=== PATIENT | female | born 1965 | race Caucasian/White ===

== ENCOUNTER → 2020-07-09 17:28 | Outpatient (CLI) | payer OTHER, SELFPAY ==
--- NOTE | ~2020-07-09 | MM_ITS ---
EXAMINATION: MM screening [facility] BI w sumit HISTORY: Screening mammogram TECHNIQUE: Craniocaudal and mediolateral oblique 3-D tomosynthesis images were obtained and synthetic 2-D images were generated. CAD analysis was submitted and interpreted. COMPARISON: 10/30/2018, 11/29/2016 BREAST PARENCHYMAL COMPOSITION: There are scattered areas of fibroglandular density. FINDINGS: There is no evidence of suspicious mass, calcification, or architectural distortion to sugg est malignancy in either breast. There has been no suspicious interval change. IMPRESSION: 1. No mammographic evidence of malignancy. 2. Recommend routine screening mammography in one year. BI-RADS Category 1: Negative Reviewed, dictated and finalized at location A.
== END ==
DX: Z12.31 Encounter for screening mammogram for malignant neoplasm of breast (principal)
CPT/HCPCS: 77063; 77067

== ENCOUNTER → 2022-04-28 07:32 | Outpatient (CLI) | payer MEDICARE, SELFPAY ==
--- NOTE | ~2022-04-28 | MM_ITS ---
EXAMINATION: MM screening [facility] BI w sumit HISTORY: Screening mammogram TECHNIQUE: Craniocaudal and mediolateral oblique 3-D tomosynthesis images were obtained and synthetic 2-D images were generated. CAD analysis was submitted and interpreted. COMPARISON: 07/09/2020, 10/30/2018, 11/29/2016 bilateral screening mammogram examinations BREAST PARENCHYMAL COMPOSITION: There are scattered areas of fibroglandular density. FINDINGS: Benign-appearing circumscribed low-density bilateral intramammary lymph nodes. There is no evidence of suspicious mass, calcification, or architectural distortion to suggest malignancy in eith er breast. There has been no suspicious interval change. IMPRESSION: 1. No mammographic evidence of malignancy. 2. Recommend routine screening mammography in one year. BI-RADS Category 2: Benign finding(s). Reviewed, dictated and finalized at location A. 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
--- NOTE | ~2022-04-28 | MR_ITS ---
EXAMINATION: MR abdomen wo/w con DATE: 04/28/2022 09:26 INDICATION: Family history of pancreatic cancer. TECHNIQUE: Magnetic resonance imaging (MRI) of the abdomen was performed without and with 14 mL Multi Osmar intravenous contrast. COMPARISON: None. FINDINGS: There is a 4 mm cyst in the liver. The spleen, gallbladder, adrenal glands, and kidneys are normal. I ncomplete pancreas divisum is noted. There is diverticulosis of the colon without evidence of diverti culitis. There are no dilated loops of bowel. There are no pathologically enlarged lymph nodes. There is no free intraperitoneal fluid. There are changes of anterior fusion procedure at lumbosacral junc tion. IMPRESSION: 1. No evidence of malignancy. Reviewed, dictated and finalized at location A. 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
== END ==
DX: Z12.31 Encounter for screening mammogram for malignant neoplasm of breast (principal); Z85.07 Personal history of malignant neoplasm of pancreas; Z87.891 Personal history of nicotine dependence
CPT/HCPCS: 74183; 77063; 77067; A9577

== ENCOUNTER 2024-02-25 07:23 | Outpatient (CLI) | payer MEDICARE, SELFPAY ==
--- NOTE | ~2024-02-25 | MM_ITS ---
EXAMINATION: MM screening [facility] BI w sumit HISTORY: Screening TECHNIQUE: Craniocaudal and mediolateral oblique 3-D tomosynthesis images were obtained and synthetic 2-D images were generated. CAD analysis was submitted and interpreted. COMPARISON: Comparison to multiple prior studies sequentially, with oldest reviewed study dated 11/2016. BREAST PARENCHYMAL COMPOSITION: Not dense: There are scattered areas of fibroglandular density. FINDINGS: There is no evidence of suspicious mass, calcification, or architectural distortion to sugg est malignancy in either breast. There has been no suspicious interval change. IMPRESSION: 1. No mammographic evidence of malignancy. 2. Recommend routine screening mammography in one year. BI-RADS Category 1: Negative Reviewed, dictated and finalized at location B. 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
== END 2024-02-25 07:24 | disposition home or self-care (01) ==
DX: Z12.31 Encounter for screening mammogram for malignant neoplasm of breast (principal)
CPT/HCPCS: 77063; 77067

== ENCOUNTER 2024-08-24 00:11 | Day surgery (SDC) | payer MEDICARE, SELFPAY ==
[2024-08-16 12:17] VITALS: BMI 24.0
--- NOTE | 2024-08-16 12:43 | PC.NURSE ---
Spoke with _patient regarding medication plavix and cilostazol. Patient verbalizes understanding that the last dose is to be taken on 08/16/24 and the Endoscopist will instruct them when to restart after the procedure.
--- OUTSIDE RECORDS SUMMARY | 2024-08-24 00:13 | XMS_ITS | Clinical Summary ---
Author Organization [facility] Address [address] [place] [address] Care Team Providers Care Dry Ice Maker Name Role Phone Dianne MCKENZIE MD, Kee Primary Care Provider [phone] Allergies Active Allergy Reactions Criticality Noted Date Comments Clarithromycin Unknown 05/30/2015 GI Sulfa (Sulfonamide Antibiotics) Rash Low 01/22 Sulfacetamide Sodium Unknown 05/30/2015 Medications rosuvastatin (CRESTOR) 40 mg tablet Take 40 mg by mouth daily at bedtime. Active ezetimibe (ZETIA) 10 mg tablet Take 10 mg by mouth daily. Active verapamil (CALAN) 120 mg tablet Take 120 mg by mouth 3 times daily. Active clopidogrel (PLAVIX) 75 mg Tablet Take 75 mg by mouth. Active cilostazol (PLETAL) 50 mg Tablet Take 50 mg by mouth 2 times daily before meals. Active omeprazole (PRILOSEC) 20 mg Capsule, Delayed Release(E.C.) Take 20 mg by mouth daily. Active Active Problems Problem Noted Date Diagnosed Date Atheroembolism of left lower extremity 5 Family History Medical History Relation Name Comments Hemophilia Father Cancer Maternal Grandmother Cancer Mother Stroke Paternal Aunt Hemophilia Paternal Grandfather Hemophilia Paternal Uncle Relation Name Status Comments Father Maternal Grandmother Mother Paternal Aunt Paternal Grandfather Paternal Uncle Social History Tobacco Use Types Packs/Day Years Used Date Smoking Tobacco: Never Smokeless Tobacco: Never Alcohol Use Standard Drinks/Week Comments Yes 2 (1 standard drink = 0.6 oz pur e alcohol) Comments No Sex and Gender Information Value Date Recorded Sex Assigned at Not on file Legal Sex Female 2:27 PM CDT Gender Identity Not on file Sexual Orientation Not on file Last Filed Vital Signs Vital Sign Reading Time Taken Comments Blood Pressure 140/90 05/30/2015 9:35 AM SAP ARCHITECT Pulse 85 05/30/2015 9:35 AM SAP ARCHITECT Temperature - - Respiratory Rate - - Oxygen Saturation - - Inhaled Oxygen Concentration - - Weight 76.2 kg (168 lb) 05/30/2015 9:33 AM SAP ARCHITECT Height 171.5 cm (5' 7.5) 05/30/2015 9:33 AM SAP ARCHITECT Body Mass Index 25.92 05/30/2015 9:33 AM SAP ARCHITECT Plan of Treatment Health Maintenance Due Date Last Done Comments DTAP/TDAP/TD VACCINES (1 - Tdap) 07/23/1982 HPV/Cotest (21-29) 07/23/1984 CERVICAL CANCER SCREENING 07/23/1993 HPV/Cotest (30-65) 07/23/1993 PAP SMEAR 07/23/1993 BREAST CANCER SCREENING 2003 COLORECTAL SCREENING 07/23/2008 Colorectal Cancer Screening 07/23/2008 FIT-DNA Q 3 years 07/23/2008 FIT/FOBT Q 1 year 07/23/2008 Flex Sig/CT Colonography Q 5 years 07/23/2008 ZOSTER VACCINE (1 of 2) 07/23/2013 RSV VACCINE (60+ or ) (1 - Risk 60-74 years 1-dose series) 2023 INFLUENZA VACCINE (#1) 2023 Insurance Care Teams Dry Ice Maker Relationship Specialty Start Date End Date Kee Dean III, MD PCP - General Internal Medicine 02/13/15
--- OUTSIDE RECORDS SUMMARY | 2024-08-24 00:13 | XMS_ITS | Encounter Summary ---
Author Organization [facility] Address [address] [address] Care Team Providers Care Ab Initio Etl Developer Name Role Phone Dianne MCKENZIE MD, Edwin Primary Care Provider Avani vailable Sanket Carrasquillo MD Unavailable Kamari Oconnell MD Unavailable Winston Lopez MD Unavailable Lamont Simmons MD Unavailable Octavio Clay MD Unavailable Yariel High MD Unavailable [phone] Yu Salmeron MD Unavailable Unavailiman e Fernando Dean MD Unavailable [phone] Joana Orlando MD Unavailable Nancy Ortega DO Primary Care Provider [phone] Nancy Ortega DO Unavailable Nancy Ortega DO Unavailable Fannie Moreno Unavailable [phone] Fannie Moreno Unavailable [phone] Encounter Details Date Type Department Care Team (Late st Contact Info) Description 12/08/2016 [facility] Outpatient Visit [facility] [address] [place] [address] Document, Scanned Social History Tobacco Use Types Packs/Day Years Used Date Smoking Tobacco: Former Cigarettes Q uit: 03/02/2004 Smokeless Tobacco: Never Alcohol Use Standard Drinks/Week Comments No 0 (1 standard drink = 0.6 oz pur e alcohol) Comments No Sex and Gender Information Value Date Recorded Sex Assigned at Not on file Legal Sex Female 6:49 AM 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 Gender Identity Female 04/21/2017 8:26 AM 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 Sexual Orientation Not on file documented as of this encounter Plan of Treatment Upcoming Encounters Date Type Department Care Team (Late st Contact Info) Description 01/11/2025 8:20 AM CDT Office Visit [facility] Internal Medicine [address] [place] [phone] Mary Jo Tovar, FAST FOOD WORKER-CITY LIBRARY DIRECTOR [address] [place] [address] 07/12/2025 8:00 AM CDT Office Visit [facility] Internal Medicine [address] [place] [address] Nancy Ortega DO [address] [place] [phone] documented as of this encounter Visit Diagnoses Not on filedocumented in this encounter Care Teams Ab Initio Etl Developer Relationship Specialty Start Date End Date Kee Dean III, MD PCP - General 04/18/09 06/11/20 Sanket Carrasquillo MD [address] [place] [address] [id number] PCP - OBGYN 04/18/09 02/07/20 Nancy Orteag DO [address] [place] [phone] PCP - General Internal Medicine 06/12/20 Nancy Ortega DO [address] [place] [address] [place] [phone] PCP - Attributed-[employer] MA ST 10/21/20 03/09/22 Nancy Ortega DO [address] [place] [address] PCP - Attributed-[employer] MA ST 03/23/22 Kamari Oconnell MD [address] [facility] [address] [place] [address] 11/02/09 02/07/20 Winston Lopez MD [address] [phone] 11/02/09 02/07/20 Lamont Simmons MD [facility] [address] [place] [address] 11/02/09 12/14/22 Octavio Clay MD Neurological Surgery [facility] [address] [facility] [address] [place] [address] 11/02/09 02/07/20 Yariel High MD [address] [place] [address] 11/02/09 Yu Salmeron MD 11/02/09 12/14/22 Fernando Dean MD [address] [place] [address] [address] [place] [address] Internal Medicine 02/03/14 02/07/20 Joana Orlando MD [address] [place] [place] [address] Obstetrics and Gynecology 02/08/20 12/14/22 Fannie Moreno Care Coordination Specialist Care Management 08/18/23 08/18/23 Fannie Moreno Care Coordination Specialist Care Management 06/01/24 07/18/24 documented as of this encounter
--- OUTSIDE RECORDS SUMMARY | 2024-08-24 00:13 | XMS_ITS | Clinical Summary ---
Author Organization [facility] Address [address] [place] [address] Care Team Providers Care Auction Clerk Name Role Phone Yariel High MD Unavailable [phone] Nancy Ortega DO Primary Care Provider [phone] Nancy Ortega DO Unavailable [phone] Source Comments [facility],non-owned Affiliates and Associated Physician Practices is amultiple site organization consisting of ambulatory clinics and hospital sitesin [place], [place], [place] and [place]. This disclosure is being madepursuant to the Care Everywhere program and may not contain all information available regarding this patient. Last updated 17.[facility] Allergies Active Allergy Reactions Criticality Noted Date Comments Clarithromycin Other Low 06/18/2008 GI Sulfa Drugs 02/16/2008 Medications * Be aware that medications may not be up to date on this document. Alwaysverify current medications with the patient. loratadine (Claritin) 10 MG tablet Take 1 (one) tablet by mouth once daily Active rosuvastatin (Crestor) 40 MG tablet Take 1 (one) tablet by mouth once daily 90 tablet 3 12/30/19 24 Active cilostazol (Pletal) 50 MG tablet TAKE 1 TABLET TWICE DAILY 180 tablet 3 01/08/20 24 Active clopidogrel (plaVIX) 75 MG tablet TAKE 1 TABLET EVERY DAY 90 tablet 3 02/01/20 24 Active omeprazole (PriLOSEC) 40 MG capsule TAKE 1 CAPSULE EVERY DAY BEFORE BREAKFAST 90 capsule 3 07/16/19 25 Active verapamil CR (Isoptin-SR) 180 MG tablet TAKE 1 TABLET AT BEDTIME 90 tablet 3 08/03/19 25 Active ezetimibe (Zetia) 10 MG tablet TAKE 1 TABLET EVERY DAY 90 tablet 3 08/10/19 25 Active verapamil CR (Isoptin-SR) 180 MG tablet Take 1 (one) tablet by mouth at bedtime 90 tablet 3 12/30/19 24 025 Discontinued ezetimibe (Zetia) 10 MG tablet Take 1 (one) tablet by mouth once daily 90 tablet 3 12/30/19 24 025 Discontinued Active Problems Problem Noted Date Diagnosed Date Seasonal allergies 12/15/2022 Primary hypertension 01/21/2022 Pre-diabetes 07/01/2021 Family history of premature coronary artery dise ase 07/01/2021 Overview (01/21/2022): -CT coronary angio 07/2021 done for screening and showed insignificant atherosclerosis. Former smoker 06/25/2021 Overview (06/25/2021): Quit 20 years ago Cold feet 08/01/2020 Overview (08/01/2020): New cold feet. Ordered CLEMENT's. 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 -CT coronary angio 07/2021 done for screening and showed insignificant atherosclerosis. -repeat CLEMENT's in 07/2020 normal. -continue cilostazole, rosuvastatin, plavix, CCB Palpitations 01/29/2011 Migraine without aura and wi thout status migrainosus, not intractable 02/16/2008 Resolved Problems Problem Noted Date Diagnosed Date Resolved Date Healthcare maintenance 08/01/202012/29 Routine general medical exam ination at a health care facility 10/08/2016 11/18/2016 RAD (reactive airway disease) 02/25/2012 12/30/2023 Perimenopausal symptoms 01/29/201111/2023 Screen for Colon Cancer 10/28/2000 ([place]) tics 06/19/19 09 06/12/2020 Stress thallium 12/01/2007 normal 06/18/2008 12/30/2023 Encounters Date Type Department Care Team Description 08/11/2024 Telephone [facility] Internal Medicine [address] [place] [phone] Nancy Ortega, DO General (Pre-procedure forms) 08/08/2024 Refill [facility] Internal Medicine [address] [place] [id number] Nancy Ortega, DO Refill Request 08/01/2024 Refill [facility] Internal Medicine [address] [place] [phone] Nancy Ortega, DO Refill Request 07/27/2024 Telephone [facility] Internal Medicine [address] [place] [phone] Nancy Ortega, DO Letter 07/14/2024 Refill [facility] Internal Medicine [address] [place] [id number] Nancy Ortega, DO Refill Request 07/13/2024 8:40 AM CDT Office Visit [facility] Internal Medicine [address] [place] [phone] Nancy Ortega, DO Pre-diabetes (Primary Dx); Primary hypertension; Overweight (BMI 25.0-29.9); Neck pain; Need for vaccination 07/13/2024 Travel 06/01/2024 Patient Outreach [facility] - Care Coordination [address] [phone] Fannie Moreno Outreach Preventive Care 06/01/2024 Patient Outreach [facility] - Care Coordination [address] [phone] Fannie Moreno Outreach Preventive Care from Last 3 Months Immunizations Immunization Administration Dates Next Due COVID PFIZER BIVALENT 12Y+ 30mcg/0.3ML Covid Pfizer primary monoval ent 12+ yr 0.3mL Purple cap 02/06/2021,05/23/2020,05/02/2020 HEP B VACCINE ADOL/ADULT 2 DOSE 05/15/2000,04/14 HEP B VACCINE, ADULT 3 DOSE 12/30/2023 INFLUENZA VACCINE 12/28/2006,02/07/2005 INFLUENZA VACCINE, CELL CULT URE, QUADR. (FLUCELVAX QUADRIVALENT; 6MO+) (CCIIV4) 01/21/2022 INFLUENZA VACCINE, QUADR. (F LUZONE; FLULAVAL; FLUARIX; AFLURIA QUADRIVALENT; 6MO+), 0.5 ML (IIV4) 12/15/2022 INFLUENZA VACCINE, TRIV. (FL UZONE; FLULAVAL; FLUARIX; AFLURIA TRIVALENT; 6MO+), 0.5 ML (IIV3) 12/30/2023 PNEUMOCOCCAL PCV20 CONJ VAC IM 07/13/2024 PPD 09/01/2000 TDAP (7yrs+) 06/12/2020 Zoster Hzv Vacc Recombinant Inj Im 09/08/2023, iNFLUENZA VACCINE, RECOM-MENENDEZ, QUADR. (FLUBLOCK QUADRIVALENT; 18Y+) (RIV4) 02/08/2020,12/07/2018,01/19/2018 Family History Medical History Relation Name Comments None Known Brother 1 None Known Brother 2 CAD (Coronary Artery Disease) Father Lymphoma Maternal Grandmother Cancer - Pancreatic Mother Other Sister osteopenia Relation Name Status Comments Brother 1 Alive Brother 2 Alive Father (Age 54) arterial d isease Maternal Grandfather Maternal Grandmother Mother (Age 73) Paternal Grandfather Paternal Grandmother Sister Alive Social History Tobacco Use Types Packs/Day Years Used Date Smoking Tobacco: Former Cigarettes 0.2 13 1 05/03/1990 - 03/02/2004 Passive Smoke Exposure: Past Smokeless Tobacco: Never Tobacco Cessation:Counseling Given: Not Answered Alcohol Use Standard Drinks/Week Comments No 0 (1 standard drink = 0.6 oz pur e alcohol) Overall Financial Resource Strain (CARDIA) Answe r Date Recorded How hard is it for you to pa y for the very basics like food, housing, medical care, and heating? Not hard at all 02/08/2020 PHQ-2 Answer Date Recorded Patient Health Questionnaire-2 Score 0 12/23/2023 Hunger Vital Sign Answer Date Recorded Within the past 12 months, y ou worried that your food would run out before you got the money to buy more. Never true 02/08/20 20 Within the past 12 months, t he food you bought just didn't last and you didn't have money to get more. Never true 02/08/2020 PRAPARE - Transportation Answer Date Re corded In the past 12 months, has l ack of transportation kept you from medical appointments or from getting medications? No 01/21 In the past 12 months, has l ack of transportation kept you from meetings, work, or from getting things needed for daily living? No 02/08/2020 Education Answer Date Recorded What is the highest level of school you have completed or the highest degree you have received? Some college, no degree 02/08/2020 Comments No Sex and Gender Information Value Date Recorded Sex Assigned at Not on file Legal Sex Female 6:49 AM BLOWING ENGINEER Gender Identity Female 04/21/2017 8:26 AM BLOWING ENGINEER Sexual Orientation Not on file Occupation Industry Job Start Date Job End Date Not on file Not on file Not on file Not on file Last Filed Vital Signs Vital Sign Reading Time Taken Comments Blood Pressure 122/84 07/13/2024 8:41 AM CDT Pulse 83 07/13/2024 8:41 AM CDT Temperature 36.3 C (97.4 F) 07/13/2024 8:41 AM CDT Respiratory Rate 16 07/30/2021 9:30 AM CDT Oxygen Saturation 98% 07/13/2024 8:41 AM CDT Inhaled Oxygen Concentration - - Weight 72.1 kg (159 lb) 07/13/2024 8:41 AM CDT Height 168.9 cm (5' 6.5) 07/13/2024 8:41 AM CDT Body Mass Index 25.28 07/13/2024 8:41 AM CDT Plan of Treatment Upcoming Encounters Date Type Department Care Team (Late st Contact Info) Description 01/11/2025 8:20 AM CDT Office Visit [facility] - Internal Medicine [address] [place] [address] Mary Jo Tovar, ACCOUNTING SYSTEMS ANALYST-CAR MOVER [address] [place] [address] 07/12/2025 8:00 AM CDT Office Visit [facility] Internal Medicine [address] [address] Nancy Ortega DO [address] [place] [address] Health Maintenance Due Date Last Done Comments COLOGUARD (AGES 45-75) - COLON CA SCREENING 1965 CT COLONOGRAPHY - COLON CA SCREENING 1965 FIT - COLON CA SCREENING 1965 FLEX SIG - COLON CA SCREENING 1965 Respiratory Syncytial Virus (RSV) Vaccine Pt: or over 60 yrs (1 - Risk 60-74 years 1-dose series) 2023 COVID-19 VACCINE ( season) 2023 01/21/2022, 02/06/2021, 05/23/2020, Additional history exists COLON MONITORING 02/04/2024 02/03/2014 COLONOSCOPY - COLON CA SCREENING 02/04/2024 02/03/2014 Colorectal Cancer Screening 02/04/2024 DEPRESSION SCREENING 03/23/2024 12/30/2023, 12/15/2022, 01/21/2022 MEDICARE AWV CALENDAR YEAR 2024 12/30/2023, 06/25/2021, 06/12/2020 MAMMOGRAM 02/23/2025 02/24/2024, 08/2022, 07/09/2020, Additional history exists PAP with HPV 01/21/2027 01/21/2022, 08/2018, 11/18/2016 SCREENING FOR DIABETES 07/14/2027 , 12/30/2023, 12/30/2023, Additional history exists DTAP/TDAP/TD VACCINES (2 - Td or Tdap) 06/12/2030 06/12/2020 HEPATITIS C SCREENING Completed 06/25/2021 HIV SCREENING Completed 06/25/2021 ZOSTER VACCINE Completed 09/08/2023, 06/25/2021 HEPATITIS B VACCINE Discontinued 12/30/2023, 05/15/2000, 04/14/2000 INFLUENZA VACCINE Completed 12/30/2023, , 01/21/2022, Additional history exists PNEUMOCOCCAL VACCINE 50+ Completed 07/13/2024 HIB VACCINE Aged Out No longer eligi ble based on patient's age to complete this topic HPV VACCINE Aged Out No longer eligi ble based on patient's age to complete this topic MENINGOCOCCAL (Group B) VACCINE SHARED DECISION-MAKING Aged Out No longer eligible based on patient's age to complete this topic MENINGOCOCCAL GROUPS A/C/Y/W VACCINE Aged Out No longer eligible based on patient's age to complete this topic Procedures Procedure Name Priority Date/Time Associated Diagnosis Comments HEMOGLOBIN A1C - POINT OF CARE (AMB) Routine 07/13/2024 9:04 AM CDT Pre-diabetes MAMMOGRAM 02/24/2024 PAP IG LB +HPV APTIMA REFLEX 16,18/45 FOR HR POS Routine 01/21/2022 9:00 AM CDT Encounter for cervical Pap smear with pelvic exam Well woman exam with routine gynecological exam HEPATITIS C ANTIBODY W RFLX PCR Routine 06/25/2021 10:04 AM CDT Need for hepatitis C screening test HIV-1 HIV-2 ANTIBODY + HIV P24 AG PANEL Routine 06/25/2021 10:04 AM CDT Screening for HIV (human immunodeficiency virus) ENDOSCOPY, COLON, SCREENING Routine 02/03/2014 from Last 3 Months or Most Recently Relevant to Health Maintenance Results * HEMOGLOBIN A1C - POINT OF CARE (HgbA1C) (07/13/2024 9:04 AM CDT) Hemoglobin A1c POCT 6.0 % [facility] Expiration Date 03-02-2026 [facility] Lot # [id number] [facility] QC Verified Yes Yes [facility] Blood BLOOD SPECIMEN / Unknown 07/13/2024 9:04 AM CDT Nancy Ortega DO LAB - POINT OF CARE ORDERA BLES Final Result Performing Organization Address City/State/[facility] Co de Phone Number [facility] [address] [place] [address], [facility] [phone] * MAMMOGRAM (02/24/2024) Anatomical Region Laterality Modality Other 02/24/2024 Narrative 02/24/2024 Ordered by an unspecified provider. us Scanned Document SCANNING ONLY Final Result * PAP IG LB +HPV APTIMA REFLEX 16,18/45 FOR HR POS (01/21/2022 9:00 AM CDT) Diagnosis [facility] INSURANCE BILL Comment:NEGATIVE FOR INTRAEP ITHELIAL LESION OR MALIGNANCY. Specimen Adequacy [facility] INSURANCE BILL Comment: Satisfactory for evaluation. Endocervical and/or squamous metaplastic cells (endocervical component) are present. Clinician Provided ICD10 [facility] INSURANCE BILL Comment:Z01.419 Performed by [facility] INSURANCE BILL Comment:Tosha Jerez ytotechnologist (ASCP) Comment . [facility] INSURANCE BILL Note [facility] INSURANCE BILL Comment: The Pap smear is a screening test designed to aid in the detection of premalignant and malignant conditions of the uterine cervix. It is not a diagnostic procedure and should not be used as the sole means of detecting cervical cancer. Both false-positive and false-negative reports do occur. . IGLBP CPT Code Automation [facility] INSURANCE BILL Comment: This liquid based ThinPrep(R) pap test was screened with the use of an image guided system. Human papillomavirus Aptima Negative Negative [facility] INSURANCE BILL Comment: This nucleic acid amplification test detects fourteen high-risk HPV types (16,18,31,33,35,39,45,51,52,56,58,59,66,68) without differentiation. PART OF UTERINE CERVIX / Unknown 01/21/2022 9:00 AM CDT 01/22/2022 Narrative [facility] INSURANCE BILL - 01/27/2022 5:08 PM BLOWING ENGINEER No. of containers..01 ThinPrep Vial Resulting Agency Comment Lab Testing performed at: [facility] [address] [place] [phone] Nancy Ortega DO LAB - PATHOLOGY/CYTOLOGY O RDERABLES Final Result Performing Organization Address City/[facility]/ZIP Co de Phone Number [facility] INSURANCE BILL [address] [place] [address] * HEPATITIS C ANTIBODY W RFLX PCR (06/25/2021 10:04 AM CDT) Pathologist [facility] Hepatitis C Antibody <0.1 0.0 - 0.9 s/co ratio [facility] INSURANCE BILL Comment:FASTING Blood BLOOD SPECIMEN / Unknown 06/25/2021 10:04 AM CDT 06/25/2021 Narrative Resulting Agency Comment [facility] performed at: [facility] [address] [phone] us Nancy Ortega DO LAB - CHEMISTRY ORDERABLES Final Result [facility] INSURANCE BILL [address] [place] [address] * HIV-1 HIV-2 ANTIBODY + HIV P24 AG PANEL (06/25/2021 10:04 AM CDT) HIV Screen 4th Generation w Reflex Non Reactive Non Reactive [facility] INSURANCE BILL Comment: HIV Negative HIV-1/HIV-2 antibodies and HIV-1 p24 antigen were NOT detected. There is no laboratory evidence of HIV infection. FASTING Blood BLOOD SPECIMEN / Unknown 06/25/2021 10:04 AM CDT 06/25/2021 Narrative Resulting Agency Comment Lab Testing performed at: [facility] [address] [facility] [phone] Nancy Ortega DO LAB - CHEMISTRY ORDERABLES Final Result [facility] INSURANCE BILL [address] [place] [address] * ENDOSCOPY, COLON, SCREENING (02/03/2014) Kee Dean III, MD GI PROCEDURE ORDERABLES Fi nal Result from Last 3 Months or Most Recently Relevant to Health Maintenance Insurance [employer] MEDICARE ADV HMO & PPO Advance Directives * Full Code (Latest Code Status on File) Date Activated Date Inactivated Comments 06/12/2020 9:26 AM Care Teams Auction Clerk Relationship Specialty Start Date End Date Nancy Ortega DO [address] [place] [phone] PCP - General Internal Medicine 06/12/20 Nancy Ortega DO [address] [place] [address] PCP - Attributed-[employer] MA STL 03/23/22 Yariel High MD [address] [place] [id number] 11/02/09
[2024-08-24 09:54] VITALS: BP 147/72; PULSE 77; RESP 18; TEMP 36.7; O2SAT 99
--- NOTE | 2024-08-24 09:57 | P.HP_ITS ---
H&P: HPI History of Present Illness Date/Time: 08/24/24 09:57 Chief Complaint: Screening colonoscopy Narrative: This is the patient's 2nd colonoscopy. There are no GI symptoms and there is no family history of colorectal cancer. Review of Systems Review of Systems: All systems reviewed & are unremarkable except as noted in HPI and below [facility], [facility] Social History Social History Smoking status: Never smoker Alcohol intake: never Substance use: never Substance use type: does not use Living arrangements: with family Spiritual care concerns: No Meds Home Medications and Allergies Home Medications ?Medication ?Instructions ?Recorded ?Confirmed ?Type cilostazol 50 mg tablet 50 mg PO BID 08/16/24 08/24/24 History clopidogrel 75 mg tablet 75 mg PO .EVENING 08/16/24 08/24/24 History ezetimibe 10 mg tablet 10 mg PO HS 08/16/24 08/24/24 History loratadine 10 mg tablet (Claritin) 10 mg PO DAILY 08/16/24 08/24/24 History omeprazole 40 mg capsule,delayed 40 mg PO HS 08/16/24 08/24/24 History release rosuvastatin 40 mg tablet 40 mg PO HS 08/16/24 08/24/24 History verapamil 180 mg tablet,extended 180 mg PO HS 08/16/24 08/24/24 History release Allergies Allergy/AdvReac Type Severity Reaction Status Date / Time Sulfa (Sulfonamide Allergy Intermediate RASH Verified 08/24/24 09:50 Antibiotics) Exam Const: General: cooperative and healthy appearing Resp: Effort & Inspection: normal respiratory effort and able to speak in complete sentences Auscultation: clear to auscultation bilaterally Cardio: Rate: regular rate Rhythm: regular rhythm GI: Inspection: normal to inspection GI Palp: No No hepatosplenomegaly present Auscultation: normal bowel sounds Rectal Exam: deferred Skin: General skin exam: normal color Psych: Appearance: grossly normal Mental Status: mental status grossly normal Assessment and Plan Assessment and plan (1) Encounter for screening colonoscopy: Code(s): Z12.11 - Encounter for screening for malignant neoplasm of colon Status: Acute Assessment and Plan: The patient is deemed a good candidate for the procedure. Consent signed. Will proceed.
--- NOTE | 2024-08-24 10:01 | P.PNAN_ITS ---
Anes - Initial Pre Proc Eval Procedure: Operation Date: 08/24/24 11:00 Proposed Procedures p Screening Colonoscopy - Rao Solano MD Date/Time: 08/24/24 10:01 Surgeon: Rao Solano MD Pre Op Diagnosis: screening Patient Data Age: 59 Gender: F Height: 1.7 m Weight: 65.4 kg Last Vital Signs Temp 36.7 C 08/24/24 09:54 Pulse 77 08/24/24 09:54 Resp 18 08/24/24 09:54 BP 147/72 H 08/24/24 09:54 Pulse Ox 99 08/24/24 09:54 O2 Del Method Room Air 08/24/24 09:54 Allergies Allergy/AdvReac Type Severity Reaction Status Date / Time Sulfa (Sulfonamide Allergy Intermediate RASH Verified 08/24/24 09:50 Antibiotics) Home Medications ?Medication ?Instructions ?Recorded ?Confirmed ?Type cilostazol 50 mg tablet 50 mg PO BID 08/16/24 08/24/24 History clopidogrel 75 mg tablet 75 mg PO .EVENING 08/16/24 08/24/24 History ezetimibe 10 mg tablet 10 mg PO HS 08/16/24 08/24/24 History loratadine 10 mg tablet (Claritin) 10 mg PO DAILY 08/16/24 08/24/24 History omeprazole 40 mg capsule,delayed 40 mg PO HS 08/16/24 08/24/24 History release rosuvastatin 40 mg tablet 40 mg PO HS 08/16/24 08/24/24 History verapamil 180 mg tablet,extended 180 mg PO HS 08/16/24 08/24/24 History release Patient hx anesthesia problems: none Family hx anesthesia problems: none Results Review: All pre-operative results and documents have been reviewed as part of the pre- operative evaluation. [facility] Social History Social History Smoking status: Never smoker Alcohol intake: never Substance use: never Substance use type: does not use Living arrangements: with family Spiritual care concerns: No Anes - Eval Final PreProcedure Day of Procedure 08/24/24 10:01 Patient weight: normal Heart: regular rate and rhythm Lungs: clear to auscultation Airway: Mallampati scale class 1 Neurological: alert and oriented Last oral intake: >/= 8 hours ASA classification: III Emergent: no Anesthetic plan: proceed Anesthesia type and monitoring: general GIVS and standard monitoring Results Review: All pre-operative results and documents have been reviewed as part of the pre- operative evaluation. Informed Consent: The patient's anesthetic plan and its attendant risks and benefits were discussed with the patient/family/POA. Questions were solicited and answers provided to the satisfaction of the patient/family/POA.
[2024-08-24] MEDS: LACTATED RINGERS 1,000 ML 150 ML IV CONT (10:04)
[2024-08-24 10:25] VITALS: BP 128/84; PULSE 77; RESP 25; O2SAT 100
[2024-08-24 10:35] VITALS: BP 145/92; PULSE 75; RESP 21; O2SAT 100
[2024-08-24 10:45] VITALS: BP 149/85; PULSE 70; RESP 20; O2SAT 100
--- NOTE | 2024-08-24 10:46 | S_PTH ---
PATIENT: Litzy Cuba LOC: [facility] #:[id number] AGE/SX: 59/F ROOM: RE08/24/[address]: Rao Solano MD : 1965 BED: DIS: 08/24/2024 SPEC #: [id number] RECD: 08/24/24 12:53 STATUS: PHOEBE REDeepa #: [id number] SINDY: 08/24/24 10:[address]: Rao Solano DEPT: [facility] Surgical RECD BY: Sushila Leahy Tissues: A - Colon Polypectomy Procedures: Hematoxylin and Eosin Stain Gross and Microscopic Level 4
== END 2024-08-24 10:57 | disposition home or self-care (01) ==
PROVIDERS: Visit Provider Internal Medicine Gastroenterology
PROC: 0DJD8ZZ Inspection of Lower Intestinal Tract, Via Natural or Artificial Opening Endoscopic (ICD-10-PCS; CPT 45378; principal; 2024-08-24 11:00)
DX: Z12.11 Encounter for screening for malignant neoplasm of colon (principal); D12.5 Benign neoplasm of sigmoid colon; K64.8 Other hemorrhoids; K57.30 Diverticulosis of large intestine without perforation or abscess without bleeding; Z79.02 Long term (current) use of antithrombotics/antiplatelets
CPT/HCPCS: 45385; 88305; J2003; J2704; J7120